=== PATIENT | male | born 1955 | race Caucasian/White ===

== ENCOUNTER → 2025-03-25 | Outpatient (CLI) | payer MEDICARE ==
[2025-03-25 17:46] LABS: Creatinine, Urine Random 83.1 mg/dL (27.00-270.00)
[2025-03-25 17:47] LABS: Microalb/Creat Ratio UR, Rand 8.026 mg/g (0.000-30.000); Microalbumin, Random Urine 6.67 mg/L (0.000-20.000)
== END ==
LOC: LAB SHORT 15:04 → LAB 15:04
PROVIDERS: Family Medicine
DX: E11.42 Type 2 diabetes mellitus with diabetic polyneuropathy (principal); E11.51 Type 2 diabetes mellitus with diabetic peripheral angiopathy without gangrene; E11.59 Type 2 diabetes mellitus with other circulatory complications
CPT/HCPCS: 82043; 82570